=== PATIENT | female | born 1935 | race Caucasian/White ===

== ENCOUNTER 2016-11-24 04:19 | Emergency (ER) | payer BC ==
--- NOTE | 2016-11-24 04:23 | PDOC ---
History of Present Illness - General Chief Complaint: Injury Stated Complaint: STATES SHE FELL HITTING NECK AND HEAD/RIGHT HIP - History of Present Illness Initial Comments: 11/24/16 05:48 lives at home woke up to go to [place] fell, hitting upper neck. had pain in r hip predating the fall by several days. Timing/Duration: 1 hour Severity: moderate Modifying Factors: improves with: immobilization Associated Symptoms: denies: chest pain, diaphoresis, fever/chills, headaches Past History - Past Medical History Allergies/Adverse Reactions: Allergies Allergy/AdvReac Type Severity Reaction Status Date / Time warfarin sodium Allergy Rash Verified 11/24/16 04:21 [From Coumadin] Home Medications: Ambulatory Orders Aspirin [ASA -] 325 mg PO DAILY 11/24/16 Clopidogrel Bisulfate [Plavix -] 75 mg PO DAILY 11/24/16 Folic Acid 1 mg PO DAILY 11/24/16 Levothyroxine [Synthroid -] 75 mcg PO DAILY 11/24/16 Metoprolol Tartrate [Lopressor -] 50 mg PO DAILY 11/24/16 Ramipril 10 mg PO DAILY 11/24/16 Simvastatin 80 mg PO HS 11/24/16 Review of Systems - Review of Systems All Other Systems: Reviewed and Negative *Physical Exam - Physical Exam General Appearance: Yes: Nourished HEENT: positive: Normal Voice Neck: positive: Tender, Other (tender upper cervical spine) Respiratory/Chest: positive: Lungs Clear Cardiovascular: positive: Regular Rhythm Gastrointestinal/Abdominal: negative: Tender Musculoskeletal: positive: Other (tender r hip) Extremity: positive: Normal Capillary Refill Neurologic: positive: Alert (good strength in 4 extremties). negative: Fully Oriented Medical Decision Making - Medical Decision Making 11/24/16 05:52 plain films -, as read by me, referred to radiology for definitive review IO report for head and neck--no acute pathology a/p s/p trip and fall image head, cspine, hip and knee on plavix + asa--low risk of subactute SDH--can be observed at home ortho fu for persistent hip pain *DC/Admit/Observation/Transfer Diagnosis at time of Disposition: Head trauma Qualifiers: Encounter type: initial encounter Qualified Code(s): S09.90XA - Unspecified injury of head, initial encounter - Discharge Dispostion Disposition: HOME Condition at time of disposition: Stable - Patient Instructions Printed Discharge Instructions: DI for Closed Head Injury, DI for Hip Bursitis
[2016-11-24 04:33] VITALS: BP 189/102; PULSE 90; TEMP 98.7; BMI 20.9
== END 2016-11-24 05:59 | disposition home or self-care (01) ==
LOC: FER 04:19
DX: S09.90XA Unspecified injury of head, initial encounter (principal); W01.0XXA Fall on same level from slipping, tripping and stumbling without subsequent striking against object, initial encounter; Y93.01 Activity, walking, marching and hiking; Y92.008 Other place in unspecified non-institutional (private) residence as the place of occurrence of the external cause; Z79.82 Long term (current) use of aspirin
CPT/HCPCS: 70450-TC; 72125-TC; 73523-TC; 73560-TC-RT; 99281-25

== ENCOUNTER 2017-01-15 23:54 | Emergency (ER) | payer BC ==
--- NOTE | 2017-01-16 00:03 | PDOC ---
History of Present Illness - General Chief Complaint: Injury Stated Complaint: RT ELBOW SKIN TEAR Time Seen by Provider: 01/15/17 23:57 History Source: Patient Exam Limitations: No Limitations - History of Present Illness Initial Comments: 01/16/17 00:03 This is an 81-year-old female who lost her balance and tripped while ambulating with her walker falling and pushed her medical alert and was brought in by ambulance for evaluation. Patient denies hitting her head or passing out. Patient is complaining of a skin tear to her right elbow. PAST MEDICAL HISTORY: Hypertension, high cholesterol, hypothyroid PAST SURGICAL HISTORY: no significant history FAMILY HISTORY: no pertinant history SOCIAL HISTORY: Patient lives alone and is retired MEDICATIONS: reviewed ALLERGIES: As per nursing notes Review of Systems General: No fevers or chills, no weakness, no weight loss HEENT: No change in vision. No sore throat,. No ear pain CardioVascular: No chest pain or shortness of breath Respiratory:No cough, or wheezing. Gastrointestinal: no nausea, vomitting, diarrhea or constipation, No rectal bleeding Genitourinary: No dysuria, hematuria, or frequency Musculoskeletal: Right elbow injury with skin tear Neurologic: No headache, vertigo, dizziness or loss of consciousness Psychiatric: nor depression Skin: No rashes or easy bruising Endocrine: no increased thirst or abnormal weight change Allergic: no skin or latex allergy All other systems reviewed and normal GENERAL: The patient is awake, alert, and fully oriented, in no acute distress. HEAD: Normal with no signs of trauma. EYES: Pupils equal, round and reactive to light, extraocular movements intact, sclera anicteric, conjunctiva clear. EXTREMITIES: There is a small skin tear over the lateral aspect of the right elbow. There is some bony tenderness with decreased range of motion secondary to discomfort. Neurovascular distal is intact. NEUROLOGICAL: Normal speech, normal gait. PSYCH: Normal mood, normal affect. SKIN: Warm, Dry, normal turgor, no rashes or lesions noted. Past History - Past Medical History Allergies/Adverse Reactions: Allergies Allergy/AdvReac Type Severity Reaction Status Date / Time warfarin sodium Allergy Rash Verified 11/24/16 04:21 [From Coumadin] Home Medications: Ambulatory Orders Aspirin [ASA -] 325 mg PO DAILY 11/24/16 Clopidogrel Bisulfate [Plavix -] 75 mg PO DAILY 05/08/17 Folic Acid 1 mg PO DAILY 11/24/16 Levothyroxine [Synthroid -] 75 mcg PO DAILY 11/24/16 Metoprolol Tartrate [Lopressor -] 50 mg PO DAILY 11/24/16 Ramipril 10 mg PO DAILY 11/24/16 Simvastatin 80 mg PO HS 11/24/16 Cardiac Disorders: Yes HTN: Yes Hypercholesterolemia: Yes Seizures: Yes - Psycho/Social/Smoking Cessation Hx Anxiety: No Suicidal Ideation: No Smoking History: Never smoked Have you smoked in the past 12 months: No Hx Alcohol Use: Yes (DAILY WINE) Drug/Substance Use Hx: No Substance Use Type: Alcohol *DC/Admit/Observation/Transfer Diagnosis at time of Disposition: Skin tear of right elbow without complication Qualifiers: Encounter type: initial encounter Qualified Code(s): S51.011A - Laceration without foreign body of right elbow, initial encounter - Discharge Dispostion Condition at time of disposition: Stable Admit: No - Patient Instructions Additional Instructions: Tylenol or Motrin as needed for pain. Purchase some Telfa pads that are [id number] and apply little bacitracin and a Telfa pad and then a gauze wrap over the laceration until the laceration has scabbed in after that you can leave it open. Return to the emergency department immediately with ANY new, persistent or worsening symptoms. Continue any medications as previously prescribed by your physician. You should follow up with your primary doctor as soon as possible regarding today's emergency department visit. . Please make sure your doctor reviews the results of your emergency evaluation. Thank you for coming to the Emergency Department today for your care. It was a pleasure to see you today. Please note that your evaluation is INCOMPLETE until you follow-up with your doctor.
[2017-01-16 00:11] VITALS: BP 154/74; PULSE 64; TEMP 98.7; BMI 22.2
== END 2017-01-16 02:00 | disposition home or self-care (01) ==
LOC: FER 23:54
DX: S51.011A Laceration without foreign body of right elbow, initial encounter (principal); I10 Essential (primary) hypertension; I51.9 Heart disease, unspecified; E78.00 Pure hypercholesterolemia, unspecified; Z79.82 Long term (current) use of aspirin; E03.9 Hypothyroidism, unspecified; W01.0XXA Fall on same level from slipping, tripping and stumbling without subsequent striking against object, initial encounter; Y93.89 Activity, other specified; Y92.9 Unspecified place or not applicable; Z99.89 Dependence on other enabling machines and devices
CPT/HCPCS: 70450-TC; 73070-TC-RT; 99282-25

== ENCOUNTER 2017-03-27 21:24 | Inpatient (IN) | payer BC ==
[2017-03-27 21:44] VITALS: BMI 22.2
--- NOTE | 2017-03-27 22:17 | PDOC ---
History of Present Illness - General Chief Complaint: Wound Stated Complaint: LT LEG WOUND Time Seen by Provider: 03/27/17 21:26 - History of Present Illness Initial Comments: This 81-year-old woman with a history of hypertension/hyperlipidemia/ hypothyroidism/CAD(hx of stents) is brought in by ambulance with left lower leg injury: Patient states that a few hours prior to presentation she fell while going to the bathroom and her walker fell on the anterior portion of her left lower leg. She denies lightheadedness prior to fall, stating that she tripped. She sustained a bruise to this area which subsequently began to bleed. Police and EMS were called; when bleeding became more profuse patient was brought here. Patient denies head or neck injury. There was no loss of consciousness. She states that she was able to briefly stand after the injury, although pain in area of wound was severe. She had no pain in her hip. She denies headache/neck pain/chest pain/shortness of breath. There is no nausea or abdominal pain. Patient is currently on Plavix s/p stent placement. She states she had previously been on Coumadin but developed an ALLERGY to this medication and and was switched to Plavix. PMH as above Patient has a history of surgical repair of hip fracture Patient's PMD is who practices in [place] Patient lives alone Medications as noted below Past History - Past Medical History Allergies/Adverse Reactions: Allergies Allergy/AdvReac Type Severity Reaction Status Date / Time warfarin sodium Allergy Rash Verified 11/24/16 04:21 [From Coumadin] Home Medications: Ambulatory Orders Aspirin [ASA -] 325 mg PO DAILY 11/24/16 Clopidogrel Bisulfate [Plavix -] 75 mg PO DAILY 11/24/16 Folic Acid 1 mg PO DAILY 11/24/16 Levothyroxine [Synthroid -] 75 mcg PO DAILY 11/24/16 Metoprolol Tartrate [Lopressor -] 50 mg PO DAILY 11/24/16 Ramipril 20 mg PO DAILY 11/24/16 Simvastatin 80 mg PO HS 11/24/16 Hydrochlorothiazide 25 mg PO DAILY 03/27/17 Cardiac Disorders: Yes HTN: Yes Hypercholesterolemia: Yes Seizures: Yes - Psycho/Social/Smoking Cessation Hx Anxiety: No Suicidal Ideation: No Smoking History: Never smoked Have you smoked in the past 12 months: No Hx Alcohol Use: Yes Drug/Substance Use Hx: No Substance Use Type: None Review of Systems - Review of Systems Able to Perform ROS?: Yes Comments:: 12 point review of systems is negative except for what is noted in the history of present illness *Physical Exam - Vital Signs Last Vital Signs Temp Pulse Resp BP Pulse Ox 98.2 F 72 16 120/70 99 03/27/17 21:24 03/27/17 21:24 03/27/17 21:24 03/27/17 21:24 03/27/17 21:24 - Physical Exam Comments: GENERAL: Elderly female, awake and oriented 3 but with some difficulty in word recall HEAD: Normal with no signs of trauma. EYES: PERRLA, EOMI, sclera anicteric, conjunctiva clear. ENT: Ears normal, nares patent, oropharynx clear without exudates. Dry mucous membranes. Nontender, non-edematous ecchymosis right submandibular area NECK: Normal range of motion, supple without lymphadenopathy, JVD, or masses. LUNGS: Breath sounds equal, clear to auscultation bilaterally. No wheezes, and no crackles. HEART:Regular rate and rhythm, normal S1 and S2 without murmur, rub or gallop. ABDOMEN:.normal bowel sounds No guarding,tenderness or rebound.No masses No distention. EXTREMITIES: Left LE lower leg anterior 20 cm soft tissue hematoma with 10 cm central vertical linear superficial laceration vs skin tear Central portion of the wound is oozing without obvious pulsatile flow Posterior portion of the lower leg is soft and nontender Remainder of the extremity exam is normal NEUROLOGICAL: Cranial nerves II through XII grossly intact. Moving all 4 extremities equally (except for pain and limitation of the left lower extremity) ; speech clear but significant word recall/recent memory deficits 12-lead electrocardiogram is performed and interpreted by me: paced rhythm at 62 bpm. T waves are inverted in leads V4 through V6. Otherwise, no significant waveform abnormalities are present. [place] and intervals are normal. X-ray of the tibia/fibula of the left leg shows no evidence of acute fracture/ dislocation. Procedures - Laceration/Wound Repair Left Lower Leg Wound Length: 7.6 to 12.5 cm Wound's Depth, Shape: superficial Irrigated w/ Saline: Yes Betadine Prep: No Progress: Under sterile technique, left lower leg anterior hematoma/superficial laceration examined: Area was cleansed with sterile normal saline. Laceration/ skin tear is very superficial and underlying hematoma is large. No pulsatile vessels identified. Surgicel and Xeroform placed on area of oozing, followed by dry sterile gauze. Gentle pressure was placed on area for several minutes. This was followed by Dread wrap covering of the wound. Leg was elevated ED Treatment Course - LABORATORY CBC & Chemistry Diagram: 03/27/17 23:05 03/27/17 23:05 Medical Decision Making - Medical Decision Making This 81-year-old woman currently taking antiplatelet medications, living alone , brought in by ambulance with left lower leg injury: Patient fell at home and sustained a hematoma to the anterior portion of the left lower leg. According to patient's son, there is a large amount of blood present in the area where the patient fell when he arrived Although the patient is awake and oriented, she had considerable amount of difficulty in word recall and recent memory. According to the patient's son, this is not her baseline mental status , stating that she is usually "mentally sharp" As noted above, there is a very large soft tissue hematoma of the anterior portion of the left lower leg with central, vertical skin tear versus superficial laceration. Laboratory evaluation revealed patient white blood cell count of 14,700; there is also mild decrease in hemoglobin and hematocrit to 9.1/28.2. MCV and MCH are decreased. Remainder of the laboratory evaluation, including cardiac enzymes, is generally unremarkable. UA (voided) is positive for nitrite/2+LE; micro-shows 75 WBCs, 2-4 RBCs and few bacteria; patient did not void enough for culture and sensitivity sample Both the patient and her son cannot recall a recent history of anemia. Patient states that she was told she was anemic as a child . She does not believe she was under any recent treatment for acute anemia. No previous CBC or other laboratory evaluation is available. Noncontrast head CT performed to evaluate for acute pathology in light of change in mental status and history of a fall. This reveals no evidence of acute pathology. The ventricles are enlarged out of proportion to the sulci and mild superimposed normal pressure hydrocephalus cannot be excluded. 03/28/17 04:28 Case discussed with CRISTY Tsai of [facility] service. Patient will be admitted to the service. Rocephin 500 mg IVPB will be given for apparent UTI. Of note, patient now with clear mentation, recalling details of her medical history/medication that she could not remember a few hours ago. Urine sent for culture and sensitivity. Patient transported to admission bed stable and without new complaints. *DC/Admit/Observation/Transfer Diagnosis at time of Disposition: Traumatic hematoma of left lower leg Qualifiers: Encounter type: initial encounter Qualified Code(s): S80.12XA - Contusion of left lower leg, initial encounter Anemia Qualifiers: Anemia type: unspecified type Qualified Code(s): D64.9 - Anemia, unspecified - Discharge Dispostion Condition at time of disposition: Stable Admit: Yes
[2017-03-27 23:31] LABS: BASOPHIL 0.5 % (0-2.0); EOSINOPHIL 1.9 % (0-4.5); MCH 23.6 pg (25.7-33.7); MCHC 32.2 g/dl (32.0-36.0); MEAN CELL VOLUME 73.4 fl (80-96); MEAN PLT VOLUME 8.5 fl (7.5-11.1); PLATELET COUNT 315 K/MM3 (134-434); RDW 16.5 % (11.6-15.6); WHITE BLOOD COUNT 14.7 K/mm3 (4.0-10.8)
[2017-03-27 23:37] LABS: INR 1.01 (0.82-1.09); PROTHROMBIN TIME (PATIENT) 11.3 SEC (10.2-13.0)
[2017-03-27 23:43] LABS: ALBUMIN 3.4 g/dl (3.5-5.0); ALK PHOS 78 U/L (32-92); ANION GAP 13 (8-16); BILIRUBIN,TOTAL 0.6 mg/dl (0.2-1.0); CALCIUM 8.5 mg/dl (8.4-10.2); CO2 20 mmol/L (22-28); CPK 103 IU/L (26-192); CREATININE 0.8 mg/dl (0.6-1.3); GLUCOSE,RANDOM 93 mg/dl (74-106); SGOT/AST 25 U/L (10-42); SGPT/ALT 10 U/L (10-40)
[2017-03-27 23:48] LABS: TROPONIN I (DFP) < 0.03 ng/ml (0.03-0.50)
[2017-03-28] MEDS ORDERED: ACETAMINOPHEN 325 MG TABLET (FP) PO ONE (00:59)
[2017-03-28] MEDS ORDERED: ACETAMINOPHEN 325 MG TABLET (FP) ONE (01:03)
[2017-03-28 01:48] LABS: URINE APPEARANCE SLCLOUDY; URINE BILIRUBIN NEGATIVE (NEGATIVE); URINE BLOOD NEGATIVE (NEGATIVE); URINE COLOR YELLOW; URINE GLUCOSE (UA) NEGATIVE (NEGATIVE); URINE KETONE TRACE (NEGATIVE); URINE LEUK ESTERASE 2+ (NEGATIVE); URINE NITRITE POSITIVE (NEGATIVE); URINE PROTEIN NEGATIVE (NEGATIVE); URINE UROBILINOGEN NEGATIVE mg/dL (0.2-1.0)
[2017-03-28 01:50] LABS: URINE BACTERIA RARE /hpf (NONE SEEN); URINE MUCUS RARE; URINE RBC <1 /hpf (0-3); URINE WBC 75 /hpf (3-5)
[2017-03-28] MEDS ORDERED: cefTRIAXone SODIUM 1 GM VIAL ONE (04:29)
[2017-03-28] MEDS: LEVOTHYROXINE NA 75 MCG TABLET (FP) PO SCH (06:54)
[2017-03-28 08:04] LABS: BASOPHIL 0.4 % (0-2.0); EOSINOPHIL 0.3 % (0-4.5); MCH 23.4 pg (25.7-33.7); MCHC 31.8 g/dl (32.0-36.0); MEAN CELL VOLUME 73.5 fl (80-96); MEAN PLT VOLUME 8.5 fl (7.5-11.1); NEUTROPHILS 70.7 % (42.8-82.8); PLATELET COUNT 267 K/MM3 (134-434); RDW 16.8 % (11.6-15.6); WHITE BLOOD COUNT 9.3 K/mm3 (4.0-10.8)
[2017-03-28 08:32] LABS: ANION GAP 7 (8-16); CALCIUM 8.4 mg/dl (8.4-10.2); CO2 24 mmol/L (22-28); CREATININE 0.8 mg/dl (0.6-1.3); GLUCOSE,RANDOM 103 mg/dl (74-106); MAGNESIUM 2.2 mg/dL (1.8-2.4); PHOSPHOROUS 4.3 mg/dl (2.5-4.6)
--- NOTE | 2017-03-28 09:29 | HP ---
CHIEF COMPLAINT: Fall PCP: HISTORY OF PRESENT ILLNESS: This is an 81 year old female with a history of HTN , HLD, CAD s/p stents (on ASA, Plavix), PPM, frequent UTIs, and hypothyroidism brought in to the ED by ambulance s/p slip and fall at home. She reports that she was ambulating when she slipped and fell, and her walker fell on top of her leg. She denies any chest pain, dizziness, lightheadedness, or any other prodrome prior to the fall. She denies loss of consciousness. She complains of severe left leg pain. ER course was notable for: (1) Left tib/fib xray: No fracture. Focal swelling by the proximal fibula. (2) H/H: 9.1/28.2 (patient does not know of any history of anemia, but does recall a transfusion once many years ago) (3) UA with 75 WBC, pos nitrites Recent Travel: None PAST MEDICAL HISTORY: As above PAST SURGICAL HISTORY: Pacemaker, stents x 2, bilateral hip replacements Social History: Lives alone, has friend who visits to prepare meals and set up medications. Smoking: When "very young" Alcohol: None Family History: Non-contributory to this admission Allergies warfarin sodium [From Coumadin] Allergy (Verified 11/24/16 04:21) Rash HOME MEDICATIONS: Home Medications Medication Instructions Recorded Aspirin [ASA -] 325 mg PO DAILY 11/24/16 Clopidogrel Bisulfate [Plavix -] 75 mg PO DAILY 11/24/16 Folic Acid 1 mg PO DAILY 11/24/16 Levothyroxine [Synthroid -] 75 mcg PO DAILY 11/24/16 Metoprolol Tartrate [Lopressor -] 50 mg PO DAILY 11/24/16 Ramipril 20 mg PO DAILY 11/24/16 Simvastatin 80 mg PO HS 11/24/16 Hydrochlorothiazide 25 mg PO DAILY 03/27/17 REVIEW OF SYSTEMS CONSTITUTIONAL: Absent: fever, chills, diaphoresis, generalized weakness, malaise, loss of appetite, weight change HEENT: Absent: rhinorrhea, nasal congestion, throat pain, throat swelling, difficulty swallowing, mouth swelling, ear pain, eye pain, visual changes CARDIOVASCULAR: Absent: chest pain, syncope, palpitations, irregular heart rate, lightheadedness , peripheral edema RESPIRATORY: Absent: cough, shortness of breath, dyspnea with exertion, orthopnea, wheezing, stridor, hemoptysis GASTROINTESTINAL: Absent: abdominal pain, abdominal distension, nausea, vomiting, diarrhea, constipation, melena, hematochezia GENITOURINARY: Frequent UTIs Absent: dysuria, frequency, urgency, hesitancy, hematuria, flank pain, genital pain MUSCULOSKELETAL: Left leg pain Absent: myalgia, arthralgia, joint swelling, back pain, neck pain SKIN: Absent: rash, itching, pallor HEMATOLOGIC/IMMUNOLOGIC: Distant history of transfusion. On ASA/Plavix. Absent: lymphadenopathy, frequent infections ENDOCRINE: Absent: unexplained weight gain, unexplained weight loss, heat intolerance, cold intolerance NEUROLOGIC: Absent: headache, focal weakness or paresthesias, dizziness, unsteady gait, seizure, mental status changes, bladder or bowel incontinence PSYCHIATRIC: Absent: anxiety, depression, suicidal or homicidal ideation, hallucinations. PHYSICAL EXAMINATION Vital Signs - 24 hr 03/28/17 04:32 Temperature 98.5 F Pulse Rate 67 Respiratory 19 Rate Blood Pressure 123/86 O2 Sat by Pulse 99 Oximetry (%) GENERAL: Awake, alert, and fully oriented but with some confusion/forgetfulness , in no acute distress. HEAD: Normal with no signs of trauma. EYES: Pupils equal, round and reactive to light, extraocular movements intact, sclera anicteric, conjunctiva clear. No lid lag. EARS, NOSE, THROAT: Ears normal, nares patent, oropharynx clear without exudates. Moist mucous membranes. Right submandibular hematoma, tender. NECK: Normal range of motion, supple without lymphadenopathy, JVD, or masses. LUNGS: Breath sounds equal, clear to auscultation bilaterally. No wheezes, and no crackles. No accessory muscle use. HEART: Regular rate and rhythm, normal S1 and S2 without murmur, rub or gallop. ABDOMEN: Soft, nontender, not distended, normoactive bowel sounds, no guarding, no rebound, no masses. No hepatomegaly or splenomegaly. Malodorous urine. MUSCULOSKELETAL: Normal range of motion of wrists, elbows, shoulders, ankles, knees, hips bilaterally. No bony deformities or tenderness. No CVA tenderness. UPPER EXTREMITIES: 2+ pulses, warm, well-perfused. No cyanosis. No clubbing. No peripheral edema. Right wrist hematoma. LOWER EXTREMITIES: LLE: DP/PT pulses 1+. 20cm x 6cm soft hematoma with central vertical skin tear. Oozing, non-pulsatile. NEUROLOGICAL: Cranial nerves II-XII intact. Normal speech. PSYCHIATRIC: Cooperative. Good eye contact. Appropriate mood and affect. SKIN: Warm, dry, normal turgor. Laboratory Results - last 24 hr 03/28/17 03/28/17 07:50 07:50 WBC 9.3 D RBC 3.33 L Hgb 7.8 L D Hct 24.5 L MCV 73.5 L MCH 23.4 L MCHC 31.8 L RDW 16.8 H Plt Count 267 MPV 8.5 Neutrophils % 70.7 Lymphocytes % 21.6 Monocytes % 7.0 Eosinophils % 0.3 D Basophils % 0.4 Sodium 133 L Potassium 3.8 Chloride 102 Carbon Dioxide 24 Anion Gap 7 L BUN 17 D Creatinine 0.8 Random Glucose 103 Calcium 8.4 Phosphorus 4.3 Magnesium 2.2 ASSESSMENT/PLAN: 81 year old female with large LLE hematoma s/p fall. Problem List - Problem (1) Traumatic hematoma of left lower leg Assessment/Plan: -Continue Xeroform/gauze/pressure dressing -Monitor CBC closely -Hold ASA/Plavix -Tylenol prn pain -Discussed with vascular surgery who will evaluate for possible evacuation Code(s): S80.12XA - CONTUSION OF LEFT LOWER LEG, INITIAL ENCOUNTER Qualifiers : Encounter type: initial encounter Qualified Code(s): S80.12XA - Contusion of left lower leg, initial encounter (2) Anemia Assessment/Plan: -Hgb 7.8<--9.1 on admission -Repeat this afternoon -Transfuse for Hgb <7 Code(s): D64.9 - ANEMIA, UNSPECIFIED Qualifiers: Anemia type: unspecified type Qualified Code(s): D64.9 - Anemia, unspecified (3) HTN (hypertension) Assessment/Plan: -At goal -Continue Lopressor/HCTZ/Ramipril Code(s): I10 - ESSENTIAL (PRIMARY) HYPERTENSION (4) HLD (hyperlipidemia) Assessment/Plan: -Continue Simvastatin Code(s): E78.5 - HYPERLIPIDEMIA, UNSPECIFIED (5) CAD (coronary artery disease) Assessment/Plan: -Continue BB, statin -Hold ASA/Plavix for now (stents not recent) Code(s): I25.10 - ATHSCL HEART DISEASE OF [place] CORONARY ARTERY W/O ANG PCTRS (6) Urinary tract infection Assessment/Plan: -Given Ceftriaxone x 1 in ED -Start Keflex -Send urine culture Code(s): N39.0 - URINARY TRACT INFECTION, SITE NOT SPECIFIED (7) DVT prophylaxis Assessment/Plan: -SCD right leg -PT DISPO: TANYA placement. Code(s): [id number] - Visit type - Emergency Visit Emergency Visit: Yes ED Registration Date: 03/28/17 Care time: The patient presented to the Emergency Department on the above date and was hospitalized for further evaluation of their emergent condition. - New Patient This patient is new to me today: Yes Date on this admission: 03/28/17 - Critical Care Critical Care patient: No
[2017-03-28] MEDS ORDERED: ONDANSETRON 4 MG/2 ML VIAL IVPB PRN (09:31)
[2017-03-28] MEDS: RAMIPRIL 5 MG CAPSULE (FP) PO SCH (09:56)
[2017-03-28] MEDS: ACETAMINOPHEN 325 MG TABLET (FP) PO PRN (09:56)
[2017-03-28] MEDS: FOLIC ACID 1 MG TABLET (FP) PO SCH (09:56)
[2017-03-28] MEDS: HYDROCHLOROTHIAZIDE 25 MG TABLET (FP) PO SCH (09:57)
[2017-03-28] MEDS: METOPROLOL TARTRATE 50 MG TABLET (FP) PO SCH (09:57)
[2017-03-28] MEDS: CEPHALEXIN MONOHYDRATE 500 MG CAPSULE (UD) PO SCH ×2 (12:05→21:29)
--- NOTE | 2017-03-28 12:22 | CONSULT ---
Consult - Alcohol/Substance Use Hx Alcohol Use: Yes - Smoking History Smoking history: Never smoked Have you smoked in the past 12 months: No Home Medications - Allergies Allergies/Adverse Reactions: Allergies Allergy/AdvReac Type Severity Reaction Status Date / Time warfarin sodium Allergy Rash Verified 11/24/16 04:21 [From Coumadin] - Home Medications Home Medications: Ambulatory Orders Aspirin [ASA -] 325 mg PO DAILY 11/24/16 Clopidogrel Bisulfate [Plavix -] 75 mg PO DAILY 11/24/16 Folic Acid 1 mg PO DAILY 11/24/16 Levothyroxine [Synthroid -] 75 mcg PO DAILY 11/24/16 Metoprolol Tartrate [Lopressor -] 50 mg PO DAILY 11/24/16 Ramipril 20 mg PO DAILY 11/24/16 Simvastatin 80 mg PO HS 11/24/16 Hydrochlorothiazide 25 mg PO DAILY 03/27/17 Physical Exam Vital Signs: Vital Signs Temperature 98.5 F 03/28/17 04:32 Pulse Rate 67 03/28/17 04:32 Respiratory Rate 19 03/28/17 04:32 Blood Pressure 123/86 03/28/17 04:32 O2 Sat by Pulse Oximetry (%) 99 03/28/17 04:32 Labs: CBC, BMP 03/28/17 07:50 03/28/17 07:50 Assessment/Plan Vascular Surgery This 81-year-old woman with a history of hypertension/hyperlipidemia/ hypothyroidism/CAD(hx of stents) is brought in by ambulance with left lower leg injury: Patient states that a few hours prior to presentation she fell while going to the bathroom and her walker fell on the anterior portion of her left lower leg. She denies lightheadedness prior to fall, stating that she tripped. She sustained a bruise to this area which subsequently began to bleed. Police and EMS were called; when bleeding became more profuse patient was brought here. Patient denies head or neck injury. There was no loss of consciousness. She states that she was able to briefly stand after the injury, although pain in area of wound was severe. She had no pain in her hip. She denies headache/neck pain/chest pain/shortness of breath. There is no nausea or abdominal pain. Patient is currently on Plavix s/p stent placement. She states she had previously been on Coumadin but developed an ALLERGY to this medication and and was switched to Plavix. PMH as above Patient has a history of surgical repair of hip fracture Patient's PMD is who practices in [place] Patient lives alone Medications as noted below PE Head - NC/AT lung - CTA Heart - RRR abd - soft,nt,nd ext -- left rashid -- hematoma with skin excoriation. Palpable pulses. A/P Left leg trauma when walker fell on her. 1. Will need evacuation of hematoma. 2. Will do on thursday . 3. Can then go to rehab. Vu Castillo DO
[2017-03-28 13:19] LABS: BASOPHIL 0.5 % (0-2.0); EOSINOPHIL 0.3 % (0-4.5); MCHC 32.3 g/dl (32.0-36.0); MEAN CELL VOLUME 74.1 fl (80-96); MEAN PLT VOLUME 8.3 fl (7.5-11.1); NEUTROPHILS 67.8 % (42.8-82.8); PLATELET COUNT 280 K/MM3 (134-434); RDW 17.1 % (11.6-15.6)
[2017-03-28] MEDS: ACETAMINOPHEN WITH CODEINE 300MG/30MG TABLET PO PRN ×2 (13:35→19:20)
[2017-03-28] MEDS: DOCUSATE SODIUM 100 MG CAPSULE (FP) PO SCH ×2 (14:00→21:29)
[2017-03-28] MEDS: ATORVASTATIN CA 40 MG TABLET (FP) PO SCH (21:29)
[2017-03-29] MEDS: DOCUSATE SODIUM 100 MG CAPSULE (FP) PO SCH ×3 (06:31→21:33)
[2017-03-29] MEDS: LEVOTHYROXINE NA 75 MCG TABLET (FP) PO SCH (06:31)
[2017-03-29 08:50] LABS: PROTHROMBIN TIME (PATIENT) 11.2 SEC (10.2-13.0)
[2017-03-29 08:57] LABS: BASOPHIL 0.6 % (0-2.0); EOSINOPHIL 3.1 % (0-4.5); MCH 24.3 pg (25.7-33.7); MCHC 31.9 g/dl (32.0-36.0); MEAN CELL VOLUME 76.1 fl (80-96); MEAN PLT VOLUME 9.1 fl (7.5-11.1); NEUTROPHILS 54.6 % (42.8-82.8); PLATELET COUNT 235 K/MM3 (134-434); RDW 17.1 % (11.6-15.6); WHITE BLOOD COUNT 8.6 K/mm3 (4.0-10.8)
--- NOTE | 2017-03-29 09:09 | PN ---
Physical Exam: SUBJECTIVE: Patient seen and examined. Complaining of perineal "burning" after being washed this morning. OBJECTIVE: Vital Signs Period Temp Pulse Resp BP Sys/Carbone Pulse Ox Last 24 Hr 98.0 F-98.1 F 56-62 18-20 107-121/61-69 100-100 GENERAL: The patient is awake, alert, and fully oriented, in no acute distress. HEAD: Normal with no signs of trauma. EYES: PERRL, extraocular movements intact, sclera anicteric, conjunctiva clear. No ptosis. ENT: Ears normal, nares patent, oropharynx clear without exudates, moist mucous membranes. NECK: Trachea midline, full range of motion, supple. LUNGS: Breath sounds equal, clear to auscultation bilaterally, no wheezes, no crackles, no accessory muscle use. HEART: Regular rate and rhythm, S1, S2 without murmur, rub or gallop. ABDOMEN: Soft, nontender, nondistended, normoactive bowel sounds, no guarding, no rebound, no hepatosplenomegaly, no masses. EXTREMITIES: 2+ pulses, warm, well-perfused. LLE:20cm x 6cm soft hematoma with central vertical skin tear. Oozing, non-pulsatile. Controlled with pressure dressing - less saturated today than yesterday. NEUROLOGICAL: Cranial nerves II through XII grossly intact. Normal speech, gait not observed. PSYCH: Normal mood, normal affect. SKIN: Warm, dry, normal turgor. No rash or lesions noted to perineum. Laboratory Results - last 24 hr Laboratory Results - last 24 hr 03/28/17 03/29/17 03/29/17 13:14 06:30 06:30 WBC 10.0 8.6 RBC 3.28 L 3.02 L Hgb 7.9 L 7.3 L Hct 24.3 L 23.0 L MCV 74.1 L 76.1 L MCH 24.0 L 24.3 L MCHC 32.3 31.9 L RDW 17.1 H 17.1 H Plt Count 280 235 MPV 8.3 9.1 Neutrophils % 67.8 54.6 Lymphocytes % 21.7 30.8 D Monocytes % 9.7 10.9 H Eosinophils % 0.3 3.1 D Basophils % 0.5 0.6 Hypochromia 1+ Platelet Estimate Adequate Anisocytosis 1+ INR 1.00 Sodium Potassium Chloride Carbon Dioxide Anion Gap BUN Creatinine Creat Clearance w eGFR Random Glucose Calcium Total Bilirubin AST ALT Alkaline Phosphatase Total Protein Albumin 03/29/17 06:30 WBC RBC Hgb Hct MCV MCH MCHC RDW Plt Count MPV Neutrophils % Lymphocytes % Monocytes % Eosinophils % Basophils % Hypochromia Platelet Estimate Anisocytosis INR Sodium 134 L Potassium 4.0 Chloride 101 Carbon Dioxide 25 Anion Gap 8 BUN 17 Creatinine 0.9 Creat Clearance w eGFR > 60 Random Glucose 92 Calcium 8.4 Total Bilirubin 0.8 D AST 19 D ALT 10 Alkaline Phosphatase 66 Total Protein 5.5 L Albumin 3.1 L Active Medications Generic Name Dose Route Start Last Admin Trade Name Freq PRN Reason Stop Dose Admin Acetaminophen 650 mg 03/28/17 09:31 03/28/17 09:56 Tylenol - PO 650 mg Q4H PRN Administration FEVER OR PAIN Acetaminophen/Codeine Phosphate 1 tab 03/28/17 13:14 03/28/17 19:20 Tylenol # 3 - PO 1 tab Q6H PRN Administration PAIN Atorvastatin Calcium 40 mg 03/28/17 22:00 03/28/17 21:29 Lipitor - PO 40 mg HS EMILY Administration Cephalexin HCl 500 mg 03/28/17 10:00 03/28/17 21:29 Keflex - PO 500 mg BID EMILY Administration Docusate Sodium 100 mg 03/28/17 14:00 03/29/17 06:31 Colace - PO 100 mg TID EMILY Administration Ferrous Sulfate 325 mg 03/30/17 10:00 Feosol - PO DAILY EMILY Folic Acid 1 mg 03/28/17 10:00 03/28/17 09:56 Folic Acid - PO 1 mg DAILY EMILY Administration Hydrochlorothiazide 25 mg 03/28/17 10:00 03/28/17 09:57 Hctz - PO 25 mg DAILY EMILY Administration Levothyroxine Sodium 75 mcg 03/28/17 07:00 03/29/17 06:31 Synthroid - PO 75 mcg DAILY@0700 EMILY Administration Metoprolol Tartrate 50 mg 03/28/17 10:00 03/28/17 09:57 Lopressor - PO 50 mg DAILY EMILY Administration Ondansetron HCl 4 mg 03/28/17 09:31 Zofran Injection IVPB Q6H PRN NAUSEA Ramipril 20 mg 03/28/17 10:00 03/28/17 09:56 Altace - PO 20 mg DAILY EMILY Administration ASSESSMENT/PLAN: Problem List - Problems (1) Traumatic hematoma of left lower leg Assessment/Plan: -Continue Xeroform/gauze/pressure dressing -Monitor CBC closely -Ok to continue ASA/Plavix per vascular surgery -Tylenol #3 prn pain -NPO after midnight for hematoma evacuation tomorrow Code(s): S80.12XA - CONTUSION OF LEFT LOWER LEG, INITIAL ENCOUNTER Qualifiers : Encounter type: initial encounter Qualified Code(s): S80.12XA - Contusion of left lower leg, initial encounter (2) Anemia Assessment/Plan: -Hgb 7.3<--9.1 on admission -Repeat this afternoon -Transfuse for Hgb <7 -Suspect component of iron deficiency with microcytic/hypochromic anemia- send iron studies, start iron supplementation Code(s): D64.9 - ANEMIA, UNSPECIFIED Qualifiers: Anemia type: unspecified type Qualified Code(s): D64.9 - Anemia, unspecified (3) HTN (hypertension) Assessment/Plan: -At goal -Continue Lopressor/HCTZ/Ramipril Code(s): I10 - ESSENTIAL (PRIMARY) HYPERTENSION (4) HLD (hyperlipidemia) Assessment/Plan: -Continue Simvastatin Code(s): E78.5 - HYPERLIPIDEMIA, UNSPECIFIED (5) CAD (coronary artery disease) Assessment/Plan: -Continue BB, statin, ASA, Plavix Code(s): I25.10 - ATHSCL HEART DISEASE OF [place] CORONARY ARTERY W/O ANG PCTRS (6) Urinary tract infection Assessment/Plan: -Given Ceftriaxone x 1 in ED -Keflex -Follow up urine culture Code(s): N39.0 - URINARY TRACT INFECTION, SITE NOT SPECIFIED (7) DVT prophylaxis Assessment/Plan: -ROBBIE right leg -PT DISPO: TANYA placement. Code(s): OXA3579 - Visit type - Emergency Visit Emergency Visit: Yes ED Registration Date: 03/28/17 Care time: The patient presented to the Emergency Department on the above date and was hospitalized for further evaluation of their emergent condition. - New Patient This patient is new to me today: No - Critical Care Critical Care patient: No
[2017-03-29 09:38] LABS: ALBUMIN 3.1 g/dl (3.5-5.0); ALK PHOS 66 U/L (32-92); ANION GAP 8 (8-16); BILIRUBIN,TOTAL 0.8 mg/dl (0.2-1.0); CALCIUM 8.4 mg/dl (8.4-10.2); CO2 25 mmol/L (22-28); CREATININE 0.9 mg/dl (0.6-1.3); GLUCOSE,RANDOM 92 mg/dl (74-106); SGOT/AST 19 U/L (10-42); SGPT/ALT 10 U/L (10-40); TOT PROT 5.5 g/dl (6.4-8.3)
--- NOTE | 2017-03-29 09:48 | SPA.PREOP ---
- PRE-OP NOTE Dx: LLE hematoma Planned Procedure: Evacuation of LLE hematoma Surgeon: Preston Castillo Consent: To be obtained after surgeon explains risks, benefits and alternatives to patient. Last Vital Signs Temp Pulse Resp BP Pulse Ox 98.0 F 62 20 121/61 100 03/29/17 06:00 03/29/17 06:00 03/29/17 06:00 03/29/17 06:00 03/29/17 06:06 Lab Results WBC 8.6 K/mm3 (4.0-10.8) 03/29/17 06:30 RBC 3.02 M/mm3 (3.60-5.2) L 03/29/17 06:30 Hgb 7.3 GM/dl (10.7-15.3) L 03/29/17 06:30 Hct 23.0 % (32.4-45.2) L 03/29/17 06:30 MCV 76.1 fl (80-96) L 03/29/17 06:30 MCHC 31.9 g/dl (32.0-36.0) L 03/29/17 06:30 RDW 17.1 % (11.6-15.6) H 03/29/17 06:30 Plt Count 235 K/MM3 (134-434) 03/29/17 06:30 Sodium 134 mmol/L (136-145) L 03/29/17 06:30 Potassium 4.0 mmol/L (3.5-5.1) 03/29/17 06:30 Chloride 101 mmol/L (98-107) 03/29/17 06:30 Carbon Dioxide 25 mmol/L (22-28) 03/29/17 06:30 Anion Gap 8 (8-16) 03/29/17 06:30 BUN 17 mg/dl (7-18) 03/29/17 06:30 Creatinine 0.9 mg/dl (0.6-1.3) 03/29/17 06:30 Random Glucose 92 mg/dl (74-106) 03/29/17 06:30 Calcium 8.4 mg/dl (8.4-10.2) 03/29/17 06:30 INR 1.00 (0.82-1.09) 03/29/17 06:30 - ASSESSMENT/PLAN Problem List - Problems (1) Traumatic hematoma of left lower leg Assessment/Plan: 1. Make NPO after midnight except po meds 2. GI/DVT PPX 3. Medical optimization / clearance 4. Type and screen Code(s): S80.12XA - CONTUSION OF LEFT LOWER LEG, INITIAL ENCOUNTER Qualifiers : Encounter type: initial encounter Qualified Code(s): S80.12XA - Contusion of left lower leg, initial encounter Visit type - Case Type Case Type: ED Admission - New patient This patient is new to me today: Yes Date on this admission: 03/29/17
[2017-03-29 09:53] LABS: ANISOCYTOSIS 1+; HYPOCHROMIA 1+; PLATELET ESTIMATE ADEQUATE (NORMAL)
[2017-03-29] MEDS: RAMIPRIL 5 MG CAPSULE (FP) PO SCH (10:32)
[2017-03-29] MEDS: FOLIC ACID 1 MG TABLET (FP) PO SCH (10:34)
[2017-03-29] MEDS: HYDROCHLOROTHIAZIDE 25 MG TABLET (FP) PO SCH (10:35)
[2017-03-29] MEDS: METOPROLOL TARTRATE 50 MG TABLET (FP) PO SCH (10:35)
[2017-03-29] MEDS: ACETAMINOPHEN 325 MG TABLET (FP) PO PRN (10:35)
[2017-03-29] MEDS: CEPHALEXIN MONOHYDRATE 500 MG CAPSULE (UD) PO SCH ×2 (10:35→21:33)
[2017-03-29] MEDS: ASPIRIN 81 MG CHEWABLE TABLETS PO SCH (12:30)
[2017-03-29] MEDS: CLOPIDOGREL BISULFATE 75 MG TABLET (FP) PO SCH (12:30)
[2017-03-29 16:39] LABS: MCHC 31.6 g/dl (32.0-36.0); MEAN CELL VOLUME 75.8 fl (80-96); MEAN PLT VOLUME 9.1 fl (7.5-11.1); PLATELET COUNT 260 K/MM3 (134-434); WHITE BLOOD COUNT 9.1 K/mm3 (4.0-10.8)
[2017-03-29] MEDS: ACETAMINOPHEN WITH CODEINE 300MG/30MG TABLET PO PRN (20:21)
[2017-03-29] MEDS: ATORVASTATIN CA 40 MG TABLET (FP) PO SCH (21:33)
[2017-03-30] MEDS: LEVOTHYROXINE NA 75 MCG TABLET (FP) PO SCH (06:56)
[2017-03-30] MEDS: DOCUSATE SODIUM 100 MG CAPSULE (FP) PO SCH ×3 (06:57→21:13)
--- NOTE | 2017-03-30 07:44 | PN ---
Physical Exam: SUBJECTIVE: Patient seen and examined, reports intermittent left lower extremity pain, denies any paresthesia to the extremity. OBJECTIVE: patient is an 81 year old female with a history of HTN, HLD, CAD s/ p stents (on ASA, Plavix), PPM, frequent UTIs, and hypothyroidism. Patient was admitted from the emergency department for hematoma to the left lower extremity and urinary tract infection. Vital Signs Period Temp Pulse Resp BP Sys/Carbone Pulse Ox Last 24 Hr 98.0 F-98.6 F 54-60 16-20 121-138/47-57 99-100 GENERAL: The patient is awake, alert, and fully oriented, in no acute distress. HEAD: Normal with no signs of trauma. EYES: PERRL, extraocular movements intact, sclera anicteric, conjunctiva clear. No ptosis. ENT: Ears normal, nares patent, oropharynx clear without exudates, moist mucous membranes. NECK: Trachea midline, full range of motion, supple. LUNGS: Breath sounds equal, clear to auscultation bilaterally, no wheezes, no crackles, no accessory muscle use. HEART: Regular rate and rhythm, S1, S2 without murmur, rub or gallop. ABDOMEN: Soft, nontender, nondistended, normoactive bowel sounds, no guarding, no rebound, no hepatosplenomegaly, no masses. EXTREMITIES: 2+ pulses, warm, well-perfused. LLE:20cm x 6cm soft hematoma with central vertical skin tear. sangenous drainage noted non-pulsatile. xerform dressing noted, Controlled with pressure dressing dried blood noted. NEUROLOGICAL: Cranial nerves II through XII grossly intact. Normal speech, gait not observed. PSYCH: Normal mood, normal affect. SKIN: Warm, dry, normal turgor. Laboratory Results - last 24 hr 03/29/17 03/29/17 03/29/17 06:30 06:30 06:30 WBC 8.6 RBC 3.02 L Hgb 7.3 L Hct 23.0 L MCV 76.1 L MCH 24.3 L MCHC 31.9 L RDW 17.1 H Plt Count 235 MPV 9.1 Neutrophils % 54.6 Lymphocytes % 30.8 D Monocytes % 10.9 H Eosinophils % 3.1 D Basophils % 0.6 Hypochromia 1+ Platelet Estimate Adequate Anisocytosis 1+ INR 1.00 Sodium 134 L Potassium 4.0 Chloride 101 Carbon Dioxide 25 Anion Gap 8 BUN 17 Creatinine 0.9 Creat Clearance w eGFR > 60 Random Glucose 92 Calcium 8.4 Total Bilirubin 0.8 D AST 19 D ALT 10 Alkaline Phosphatase 66 Total Protein 5.5 L Albumin 3.1 L Blood Type Antibody Screen 03/29/17 03/29/17 03/29/17 14:45 14:45 14:45 WBC 9.1 RBC 2.99 L Hgb 7.2 L Hct 22.7 L MCV 75.8 L MCH 24.0 L MCHC 31.6 L RDW 17.0 H Plt Count 260 MPV 9.1 Neutrophils % Lymphocytes % Monocytes % Eosinophils % Basophils % Hypochromia Platelet Estimate Anisocytosis INR Sodium Potassium Chloride Carbon Dioxide Anion Gap BUN Creatinine Creat Clearance w eGFR Random Glucose Calcium Total Bilirubin AST ALT Alkaline Phosphatase Total Protein Albumin Blood Type O POSITIVE O POSITIVE Antibody Screen Negative Active Medications Generic Name Dose Route Start Last Admin Trade Name Freq PRN Reason Stop Dose Admin Acetaminophen 650 mg 03/28/17 09:31 03/29/17 10:35 Tylenol - PO 650 mg Q4H PRN Administration FEVER OR PAIN Acetaminophen/Codeine Phosphate 1 tab 03/28/17 13:14 03/29/17 20:21 Tylenol # 3 - PO 1 tab Q6H PRN Administration PAIN Aspirin 81 mg 03/29/17 12:15 03/29/17 12:30 Asa - PO 81 mg DAILY EMILY Administration Atorvastatin Calcium 40 mg 03/28/17 22:00 03/29/17 21:33 Lipitor - PO 40 mg HS EMILY Administration Cephalexin HCl 500 mg 03/28/17 10:00 03/29/17 21:33 Keflex - PO 500 mg BID EMILY Administration Clopidogrel Bisulfate 75 mg 03/29/17 12:15 03/29/17 12:30 Plavix - PO 75 mg DAILY EMILY Administration Docusate Sodium 100 mg 03/28/17 14:00 03/30/17 06:57 Colace - PO Not Given TID [facility] Ferrous Sulfate 325 mg 03/30/17 10:00 Feosol - PO DAILY [facility] Folic Acid 1 mg 03/28/17 10:00 03/29/17 10:34 Folic Acid - PO 1 mg DAILY EMILY Administration Hydrochlorothiazide 25 mg 03/28/17 10:00 03/29/17 10:35 Hctz - PO 25 mg DAILY EMILY Administration Levothyroxine Sodium 75 mcg 03/28/17 07:00 03/30/17 06:56 Synthroid - PO 75 mcg DAILY@0700 EMILY Administration Metoprolol Tartrate 50 mg 03/28/17 10:00 03/29/17 10:35 Lopressor - PO 50 mg DAILY EMILY Administration Ondansetron HCl 4 mg 03/28/17 09:31 Zofran Injection IVPB Q6H PRN NAUSEA Ramipril 20 mg 03/28/17 10:00 03/29/17 10:32 Altace - PO 20 mg DAILY EMILY Administration ASSESSMENT/PLAN: 1) traumatic hematoma to the left lower extremity - pending OR today - continue xeroform/cling/harley bandage to form a pressure dressing - prn pain medication - Dr Castillo, vascular surgery consulted and followed. 2)heme microcytic anemia -hgb 7.2, unknown baseline, pending OR today, known history of CAD, will transfuse 1 unit of prbc, repeat hgb in at 1800 - pending iron studies 3) card hypertension - continue lopressor/hctz/ramipril - b/p at goal hyperlipidemia -lft's wnl continue simvastin CAD s/p stent - hold asa/plavix pending or today 4) - continue keflex pending urine culture f/e/n - npo - replete electrolytes prn ppx - ROBBIE right leg - hold AC pending or dispo: requires inpatient admission Visit type - Emergency Visit Emergency Visit: Yes ED Registration Date: 03/28/17 Care time: The patient presented to the Emergency Department on the above date and was hospitalized for further evaluation of their emergent condition. - New Patient This patient is new to me today: Yes Date on this admission: 03/30/17 - Critical Care Critical Care patient: No - Discharge Referral Referred to [facility] Med [facility] No
[2017-03-30 08:36] LABS: BASOPHIL 0.4 % (0-2.0); EOSINOPHIL 3.7 % (0-4.5); MCH 23.6 pg (25.7-33.7); MCHC 31.1 g/dl (32.0-36.0); MEAN PLT VOLUME 8.9 fl (7.5-11.1); NEUTROPHILS 56.9 % (42.8-82.8); PLATELET COUNT 282 K/MM3 (134-434); RDW 17.7 % (11.6-15.6); WHITE BLOOD COUNT 9.8 K/mm3 (4.0-10.8)
[2017-03-30 08:47] LABS: ALBUMIN 3.2 g/dl (3.5-5.0); ALK PHOS 70 U/L (32-92); ANION GAP 6 (8-16); BILIRUBIN,TOTAL 0.7 mg/dl (0.2-1.0); CALCIUM 8.6 mg/dl (8.4-10.2); CO2 27 mmol/L (22-28); CREATININE 0.8 mg/dl (0.6-1.3); GLUCOSE,RANDOM 93 mg/dl (74-106); SGOT/AST 18 U/L (10-42); SGPT/ALT 9 U/L (10-40); TOT PROT 5.6 g/dl (6.4-8.3)
[2017-03-30] MEDS: RAMIPRIL 5 MG CAPSULE (FP) PO SCH (09:49)
[2017-03-30] MEDS: HYDROCHLOROTHIAZIDE 25 MG TABLET (FP) PO SCH (09:50)
[2017-03-30] MEDS: METOPROLOL TARTRATE 50 MG TABLET (FP) PO SCH (09:50)
[2017-03-30] MEDS: FERROUS SO4 325 MG TABLET (FP) PO SCH (09:50)
[2017-03-30] MEDS: FOLIC ACID 1 MG TABLET (FP) PO SCH (09:50)
[2017-03-30] MEDS: CEPHALEXIN MONOHYDRATE 500 MG CAPSULE (UD) PO SCH ×2 (09:50→21:13)
[2017-03-30] MEDS: ASPIRIN 81 MG CHEWABLE TABLETS PO SCH (09:51)
[2017-03-30] MEDS: CLOPIDOGREL BISULFATE 75 MG TABLET (FP) PO SCH (09:51)
[2017-03-30 10:07] LABS: FERRITIN 8.682 ng/ml (6.9-282.5)
[2017-03-30] MEDS ORDERED: PROPOFOL 20 ML ONE ×3 (13:34→14:31)
[2017-03-30] MEDS ORDERED: LIDOCAINE HCL/PF 2% SDV 5ML VIAL ONE (13:34)
[2017-03-30] MEDS ORDERED: LIDOCAINE HCL 1%, 10 MG/ML (20ML VIAL) ONE (14:35)
[2017-03-30] MEDS ORDERED: LIDOCAINE HCL 1%, 10 MG/ML (50 mL VIAL) IJ ONE (14:41)
[2017-03-30] MEDS ORDERED: BACITRACIN 15 GM TUBE TOPICAL OINTMENT TP ONE (14:50)
--- NOTE | 2017-03-30 14:54 | OP ---
Operative Note - Note: Operative Date: 03/30/17 Pre-Operative Diagnosis: Left rashid hematoma Operation: evacauation of hematoma left rashid Findings: hematoma evacuated pulse lavage performed. Post-Operative Diagnosis: Same as Pre-op Surgeon: Vu Castillo Anesthesia: Fractional Estimated Blood Loss (mls): 10 Operative Report Dictated: Yes
[2017-03-30] MEDS ORDERED: ONDANSETRON 4 MG/2 ML VIAL ONE (14:55)
--- NOTE | 2017-03-30 14:56 | PN ---
Progress Note (short form) - Note Progress Note: VAscular surgery S/P evacuation of hematoma left rashid. Change dressing daily with xeroform and kerlex. When pt goes to rehab, can follow up in wound care clinic at [facility]. call for appt -- [phone] Vu Castillo DO
[2017-03-30] MEDS ORDERED: LACTATED RINGERS SOLUTION 1,000 ML IV SCH (15:15)
[2017-03-30 19:01] LABS: MCH 24.8 pg (25.7-33.7); MCHC 31.4 g/dl (32.0-36.0); MEAN CELL VOLUME 78.8 fl (80-96); MEAN PLT VOLUME 8.6 fl (7.5-11.1); PLATELET COUNT 253 K/MM3 (134-434); RDW 18.6 % (11.6-15.6); WHITE BLOOD COUNT 9.9 K/mm3 (4.0-10.8)
[2017-03-30] MEDS: ATORVASTATIN CA 40 MG TABLET (FP) PO SCH (21:13)
[2017-03-30 22:46] LABS: PLATELET ESTIMATE ADEQUATE (NORMAL); REACTIVE LYMPHOCYTES 2 % (0-80)
[2017-03-30 22:47] LABS: ANISOCYTOSIS 2+; HYPOCHROMIA 2+; MACROCYTOSIS 1+
[2017-03-31] MEDS: LEVOTHYROXINE NA 75 MCG TABLET (FP) PO SCH (06:32)
[2017-03-31] MEDS: DOCUSATE SODIUM 100 MG CAPSULE (FP) PO SCH ×3 (07:10→21:05)
[2017-03-31] MEDS: ACETAMINOPHEN WITH CODEINE 300MG/30MG TABLET PO PRN ×2 (07:11→13:40)
[2017-03-31 07:57] LABS: BASOPHIL 0.6 % (0-2.0); MCH 24.6 pg (25.7-33.7); MCHC 31.3 g/dl (32.0-36.0); MEAN CELL VOLUME 78.6 fl (80-96); MEAN PLT VOLUME 8.7 fl (7.5-11.1); NEUTROPHILS 55.2 % (42.8-82.8); PLATELET COUNT 243 K/MM3 (134-434); RDW 18.7 % (11.6-15.6); WHITE BLOOD COUNT 8.9 K/mm3 (4.0-10.8)
--- NOTE | 2017-03-31 08:05 | PN ---
Progress Note (short form) - Note Progress Note: POD#1 PT with pain at her operative site. Pre medicated with oral tyelnol/IV morphine for dressing change. Vital Signs Period Temp Pulse Resp BP Sys/Carbone Pulse Ox Last 24 Hr 98.1 F-98.9 F 61-96 16-19 100-177/46-79 96-100 LLE:Sara intact in several places. No active bleeding. Ecchymosis to the skin. Telfa dressing replaced RLE: SCD in place. CBC, BMP 03/31/17 07:30 A/P: 81 yo female s/p LLE hematoma evacuation. local wound care with telfa, 4x4 gauze and funmilayo galvez planning to to rehab
[2017-03-31 08:07] LABS: SERUM IRON 11 ug/dL (27-139); TOTAL IRON BINDING CAPACITY 338 ug/dL (250-450); UIBC 327 ug/dL (118-369)
--- NOTE | 2017-03-31 08:08 | OP ---
DATE OF OPERATION: 03/30/2017 SURGEON: Vu Morel MD PREOPERATIVE DIAGNOSIS: Left rashid hematoma. POSTOPERATIVE DIAGNOSIS: Left rashid hematoma. PROCEDURE: Evacuation of left rashid hematoma. TOTAL BLOOD LOSS: 10 mL. ANESTHESIA: Fractional. INDICATIONS: The patient is an 81-year-old female who had a trauma at home three days ago where her walker fell on her left rashid and she developed a left rashid hematoma. It was decided that she would need evacuation. Patient was consented for the procedure understanding all risks, benefits, and alternatives and was then taken to the operating room. PROCEDURE IN DETAIL: Once in the operating room, she was placed on the operating table in the supine manner, and the area of the left rashid was prepped and draped in the sterile surgical manner. We then went ahead and injected 10 mL of 0.5% lidocaine in the area of the eschar on the left rashid. We then took Metzenbaum scissors and cut the eschar out. We then were able to squeeze out all the hematoma from the left rashid. We then went ahead and used pulse lavage with bacitracin, and we were able to lavage the entire, and all hematomas were removed, and the wound was nice and clean. We then went ahead and approximated the skin using skin leona. We then placed bacitracin and Xeroform and 4x4s and Kerlix. The patient tolerated the procedure with no complications. Patient transferred to PACU in stable condition. Total blood loss 10 mL. VU MOREL DO [id number]
[2017-03-31 08:17] LABS: ALBUMIN 2.8 g/dl (3.5-5.0); ALK PHOS 64 U/L (32-92); ANION GAP 5 (8-16); BILIRUBIN,TOTAL 0.8 mg/dl (0.2-1.0); CALCIUM 8.4 mg/dl (8.4-10.2); CO2 28 mmol/L (22-28); CREATININE 0.8 mg/dl (0.6-1.3); GLUCOSE,RANDOM 106 mg/dl (74-106); PHOSPHOROUS 3.4 mg/dl (2.5-4.6); SGOT/AST 17 U/L (10-42); SGPT/ALT 8 U/L (10-40); TOT PROT 5.1 g/dl (6.4-8.3)
[2017-03-31] MEDS ORDERED: morphine CARPU-JECT 2 MG/1 ML DISP.SYRIN IVPUSH ONE (08:30)
[2017-03-31] MEDS: ASPIRIN 81 MG CHEWABLE TABLETS PO SCH (09:27)
[2017-03-31] MEDS: HYDROCHLOROTHIAZIDE 25 MG TABLET (FP) PO SCH (09:28)
[2017-03-31] MEDS: CEPHALEXIN MONOHYDRATE 500 MG CAPSULE (UD) PO SCH ×2 (09:28→21:05)
[2017-03-31] MEDS: FERROUS SO4 325 MG TABLET (FP) PO SCH (09:28)
[2017-03-31] MEDS: FOLIC ACID 1 MG TABLET (FP) PO SCH (09:28)
[2017-03-31] MEDS: RAMIPRIL 5 MG CAPSULE (FP) PO SCH (09:28)
[2017-03-31] MEDS: METOPROLOL TARTRATE 50 MG TABLET (FP) PO SCH (09:29)
--- NOTE | 2017-03-31 09:41 | PN ---
Physical Exam: SUBJECTIVE: Patient seen and examined, reports pain to the left lower extremity upon movement, patient denies any parenthesisa to the extremity. OBJECTIVE: patient is an 81 year old female with a history of HTN, HLD, CAD s/ p stents (on ASA, Plavix), PPM, frequent UTIs, and hypothyroidism. Patient was admitted from the emergency department for hematoma to the left lower extremity. . Vital Signs Period Temp Pulse Resp BP Sys/Carbone Pulse Ox Last 24 Hr 98.1 F-98.9 F 61-96 16-19 100-177/46-79 96-100 GENERAL: The patient is awake, alert, and fully oriented, in no acute distress. HEAD: Normal with no signs of trauma. EYES: PERRL, extraocular movements intact, sclera anicteric, conjunctiva clear. No ptosis. ENT: Ears normal, nares patent, oropharynx clear without exudates, moist mucous membranes. NECK: Trachea midline, full range of motion, supple. LUNGS: Breath sounds equal, clear to auscultation bilaterally, no wheezes, no crackles, no accessory muscle use. HEART: Regular rate and rhythm, S1, S2 without murmur, rub or gallop. ABDOMEN: Soft, nontender, nondistended, normoactive bowel sounds, no guarding, no rebound, no hepatosplenomegaly, no masses. EXTREMITIES: 2+ pulses, warm, well-perfused, no edema. LEFT LOWER EXTREMITY: echymosis to the distal lower extremity, surgical site to lateral extremity leona in place and well approximated, +3 pedal pulse, trace edema NEUROLOGICAL: Cranial nerves II through XII grossly intact. Normal speech, gait not observed. PSYCH: Normal mood, normal affect. SKIN: Warm, dry, normal turgor, no rashes or lesions noted Laboratory Results - last 24 hr 03/30/17 03/30/17 03/30/17 07:30 07:30 18:06 WBC 9.9 RBC 3.40 L Hgb 8.4 L D Hct 26.8 L MCV 78.8 L MCH 24.8 L MCHC 31.4 L RDW 18.6 H Plt Count 253 MPV 8.6 Neutrophils % Y Neutrophils % (Manual) 64 Band Neuts % (Manual) 5 Lymphocytes % Y Lymphocytes % (Manual) 26 Monocytes % Monocytes % (Manual) 2 L Eosinophils % Eosinophils % (Manual) 1 Basophils % Hypochromia 2+ Platelet Estimate Adequate Platelet Comment Few large plts Anisocytosis 2+ Macrocytosis 1+ Sodium 137 Potassium 3.9 Chloride 104 Carbon Dioxide 27 Anion Gap 6 L BUN 14 Creatinine 0.8 Creat Clearance w eGFR > 60 Random Glucose 93 Calcium 8.6 Phosphorus Magnesium Iron 11 L TIBC 338 Iron Saturation 3 L Ferritin 8.682 Total Bilirubin 0.7 AST 18 ALT 9 L Alkaline Phosphatase 70 Total Protein 5.6 L Albumin 3.2 L 03/31/17 03/31/17 07:30 07:30 WBC 8.9 RBC 3.39 L Hgb 8.3 L Hct 26.6 L MCV 78.6 L MCH 24.6 L MCHC 31.3 L RDW 18.7 H Plt Count 243 MPV 8.7 Neutrophils % 55.2 Neutrophils % (Manual) Band Neuts % (Manual) Lymphocytes % 30.3 Lymphocytes % (Manual) Monocytes % 9.9 Monocytes % (Manual) Eosinophils % 4.0 Eosinophils % (Manual) Basophils % 0.6 Hypochromia Platelet Estimate Platelet Comment Anisocytosis Macrocytosis Sodium 135 L Potassium 3.5 Chloride 102 Carbon Dioxide 28 Anion Gap 5 L BUN 13 Creatinine 0.8 Creat Clearance w eGFR > 60 Random Glucose 106 Calcium 8.4 Phosphorus 3.4 D Magnesium 2.0 Iron TIBC Iron Saturation Ferritin Total Bilirubin 0.8 AST 17 ALT 8 L Alkaline Phosphatase 64 Total Protein 5.1 L Albumin 2.8 L Active Medications Generic Name Dose Route Start Last Admin Trade Name Freq PRN Reason Stop Dose Admin Acetaminophen 650 mg 03/28/17 09:31 03/29/17 10:35 Tylenol - PO 650 mg Q4H PRN Administration FEVER OR PAIN Acetaminophen/Codeine Phosphate 1 tab 03/28/17 13:14 03/31/17 07:11 Tylenol # 3 - PO 1 tab Q6H PRN Administration PAIN Aspirin 81 mg 03/29/17 12:15 03/31/17 09:27 Asa - PO 81 mg DAILY EMILY Administration Atorvastatin Calcium 40 mg 03/28/17 22:00 03/30/17 21:13 Lipitor - PO Not Given HS EMILY Cephalexin HCl 500 mg 03/28/17 10:00 03/31/17 09:28 Keflex - PO 500 mg BID EMILY Administration Clopidogrel Bisulfate 75 mg 03/29/17 12:15 03/30/17 09:51 Plavix - PO Not Given DAILY [facility] Docusate Sodium 100 mg 03/28/17 14:00 03/31/17 07:10 Colace - PO 100 mg TID EMILY Administration Fentanyl 25 mcg 03/30/17 15:11 Sublimaze Injection - IVPUSH 04/02/17 15:12 [id number] PRN PAIN Ferrous Sulfate 325 mg 03/30/17 10:00 03/31/17 09:28 Feosol - PO 325 mg DAILY EMILY Administration Folic Acid 1 mg 03/28/17 10:00 03/31/17 09:28 Folic Acid - PO 1 mg DAILY EMILY Administration Hydrochlorothiazide 25 mg 03/28/17 10:00 03/31/17 09:28 Hctz - PO 25 mg DAILY EMILY Administration Levothyroxine Sodium 75 mcg 03/28/17 07:00 03/31/17 06:32 Synthroid - PO 75 mcg DAILY@0700 EMILY Administration Metoprolol Tartrate 50 mg 03/28/17 10:00 03/31/17 09:29 Lopressor - PO 50 mg DAILY EMILY Administration Ondansetron HCl 4 mg 03/28/17 09:31 Zofran Injection IVPB Q6H PRN NAUSEA Ramipril 20 mg 03/28/17 10:00 03/31/17 09:28 Altace - PO 20 mg DAILY EMILY Administration Microbiology 03/30/17 13:05 Urine - Urine Clean Catch Urine Culture - Final, less than 10k ASSESSMENT/PLAN: 1) traumatic hematoma to the left lower extremity--s/p left lower extremity hematoma evacuation (03/30/17) - pod #1 (Castillo) dressing changed wound is well appearing - prn pain medication - Dr Castillo, vascular surgery consulted and followed. 2)heme microcytic anemia - likely secondary to iron deficency/acute blood loss - 1 unit of prbc transfused, 03/30, hgb 8.3, close monitoring repeat hgb in am - continue iron supplements 3) card hypertension - continue lopressor/hctz/ramipril - b/p at goal hyperlipidemia -lft's wnl continue simvastin CAD s/p stent - continue asa/plavix pending or today 4) - urine culture less than 10 k f/e/n - low sodium diet - replete electrolytes prn ppx - ROBBIE right leg - pt evaluation dispo: requires inpatient admission Visit type - Emergency Visit Emergency Visit: Yes ED Registration Date: 03/28/17 Care time: The patient presented to the Emergency Department on the above date and was hospitalized for further evaluation of their emergent condition. - New Patient This patient is new to me today: Yes Date on this admission: 03/31/17 - Critical Care Critical Care patient: No - Discharge Referral Referred to [facility] Med P.C.: No
--- NOTE | 2017-03-31 10:33 | EKG ---
Test Reason : Blood Pressure : / mmHG Vent. Rate : 062 BPM Atrial Rate : 062 BPM P-R Int : 232 ms QRS Dur : 072 ms QT Int : 414 ms P-R-T Axes : 000 -19 -37 degrees QTc Int : 420 ms Atrial-paced rhythm with prolonged AV conduction NO PREVIOUS ECGS AVAILABLE Confirmed by MD HENSON MARJORY ([id number]) on 03/31/2017 10:33:18 AM Referred By: MD FELTON Confirmed By:TRESSA HENSON MD
[2017-03-31] MEDS: POLYETHYLENE GLYCOL 3350 119 GM BTL PO SCH (11:14)
[2017-03-31] MEDS: CLOPIDOGREL BISULFATE 75 MG TABLET (FP) PO SCH (11:15)
[2017-03-31] MEDS: ACETAMINOPHEN 325 MG TABLET (FP) PO PRN (16:46)
[2017-03-31] MEDS: ATORVASTATIN CA 40 MG TABLET (FP) PO SCH (21:05)
[2017-04-01] MEDS: ACETAMINOPHEN WITH CODEINE 300MG/30MG TABLET PO PRN ×2 (04:16→19:40)
[2017-04-01] MEDS: LEVOTHYROXINE NA 75 MCG TABLET (FP) PO SCH (06:32)
[2017-04-01] MEDS: DOCUSATE SODIUM 100 MG CAPSULE (FP) PO SCH ×3 (06:32→21:39)
[2017-04-01] MEDS: FERROUS SO4 325 MG TABLET (FP) PO SCH (09:55)
[2017-04-01] MEDS: FOLIC ACID 1 MG TABLET (FP) PO SCH (09:55)
[2017-04-01] MEDS: CEPHALEXIN MONOHYDRATE 500 MG CAPSULE (UD) PO SCH ×2 (09:55→21:39)
[2017-04-01] MEDS: ASPIRIN 81 MG CHEWABLE TABLETS PO SCH (09:55)
[2017-04-01] MEDS: CLOPIDOGREL BISULFATE 75 MG TABLET (FP) PO SCH (09:55)
[2017-04-01] MEDS: POLYETHYLENE GLYCOL 3350 119 GM BTL PO SCH (09:56)
[2017-04-01] MEDS: METOPROLOL TARTRATE 50 MG TABLET (FP) PO SCH (09:56)
[2017-04-01] MEDS: HYDROCHLOROTHIAZIDE 25 MG TABLET (FP) PO SCH (09:56)
[2017-04-01] MEDS: RAMIPRIL 5 MG CAPSULE (FP) PO SCH (09:56)
--- NOTE | 2017-04-01 09:56 | DS ---
Physical Exam: SUBJECTIVE: Patient seen and examined, reports feeling well denies any paresthesia to the left lower extremity, reports pain to the surgical site upon palpation OBJECTIVE: This is an 81 year old female with a history of HTN, HLD, CAD s/p stents (on ASA, Plavix), PPM, frequent UTIs, and hypothyroidism brought in to the ED by ambulance s/p slip and fall at home. She reports that she was ambulating when she slipped and fell, and her walker fell on top of her leg. She denies any chest pain, dizziness, lightheadedness, or any other prodrome prior to the fall. She denies loss of consciousness. She complains of severe left leg pain. ER course was notable for: (1) Left tib/fib xray: No fracture. Focal swelling by the proximal fibula. (2) H/H: 9.1/28.2 (patient does not know of any history of anemia, but does recall a transfusion once many years ago) (3) UA with 75 WBC, pos nitrites Vital Signs Period Temp Pulse Resp BP Sys/Carbone Pulse Ox Last 24 Hr 97.4 F-98.0 F 60-76 16-18 122-161/45-62 95-100 PHYSICAL EXAM GENERAL: The patient is awake, alert, and fully oriented, in no acute distress. HEAD: Normal with no signs of trauma. EYES: PERRL, extraocular movements intact, sclera anicteric, conjunctiva clear. ENT: Ears normal, nares patent, oropharynx clear without exudates, moist mucous membranes. NECK: Trachea midline, full range of motion, supple. LUNGS: Breath sounds equal, clear to auscultation bilaterally, no wheezes, no crackles, no accessory muscle use. HEART: Regular rate and rhythm, S1, S2 without murmur, rub or gallop. ABDOMEN: Soft, nontender, nondistended, normoactive bowel sounds, no guarding, no rebound, no hepatosplenomegaly, no masses. EXTREMITIES: 2+ pulses, warm, well-perfused, no edema. NEUROLOGICAL: Cranial nerves II through XII grossly intact. Normal speech, gait not observed. PSYCH: Normal mood, normal affect. SKIN: Warm, dry, normal turgor, no rashes or lesions noted. LABS CBC WBC 8.7 K/mm3 (4.0-10.8) 04/01/17 10:45 RBC 3.41 M/mm3 (3.60-5.2) L 04/01/17 10:45 Hgb 8.4 GM/dl (10.7-15.3) L 04/01/17 10:45 Hct 26.8 % (32.4-45.2) L 04/01/17 10:45 MCV 78.6 fl (80-96) L 04/01/17 10:45 MCH 24.8 pg (25.7-33.7) L 04/01/17 10:45 MCHC 31.6 g/dl (32.0-36.0) L 04/01/17 10:45 RDW 18.3 % (11.6-15.6) H 04/01/17 10:45 Plt Count 294 K/MM3 (134-434) D 04/01/17 10:45 MPV 8.8 fl (7.5-11.1) 04/01/17 10:45 Neutrophils % 65.5 % (42.8-82.8) 04/01/17 10:45 Neutrophils % (Manual) 64 % (42.8-82.8) 03/30/17 18:06 Band Neuts % (Manual) 5 % (0-10) 03/30/17 18:06 Lymphocytes % 18.6 % (8-40) D 04/01/17 10:45 Lymphocytes % (Manual) 26 % (8-40) 03/30/17 18:06 Monocytes % 8.9 % (3.8-10.2) 04/01/17 10:45 Monocytes % (Manual) 2 % (3.8-10.2) L 03/30/17 18:06 Eosinophils % 6.7 % (0-4.5) H 04/01/17 10:45 Eosinophils % (Manual) 1 % (0-4.5) 03/30/17 18:06 Basophils % 0.3 % (0-2.0) 04/01/17 10:45 Hypochromia 2+ 03/30/17 18:06 Platelet Estimate Adequate (NORMAL) 03/30/17 18:06 Platelet Comment Few large plts 03/30/17 18:06 Anisocytosis 2+ 03/30/17 18:06 Macrocytosis 1+ 03/30/17 18:06 CMP Sodium 134 mmol/L (136-145) L 04/01/17 18:00 Potassium 4.6 mmol/L (3.5-5.1) D 04/01/17 18:00 Chloride 102 mmol/L (98-107) 04/01/17 18:00 Carbon Dioxide 25 mmol/L (22-28) 04/01/17 18:00 Anion Gap 7 (8-16) L 04/01/17 18:00 BUN 12 mg/dl (7-18) 04/01/17 18:00 Creatinine 0.8 mg/dl (0.6-1.3) 04/01/17 18:00 Creat Clearance w eGFR > 60 (>60) 03/31/17 07:30 Random Glucose 155 mg/dl (74-106) H D 04/01/17 18:00 Calcium 8.9 mg/dl (8.4-10.2) 04/01/17 18:00 Phosphorus 3.2 mg/dl (2.5-4.6) 04/01/17 10:45 Magnesium 2.1 mg/dL (1.8-2.4) 04/01/17 10:45 Iron 11 ug/dL (27-139) L 03/30/17 07:30 TIBC 338 ug/dL (250-450) 03/30/17 07:30 Iron Saturation 3 % (15-55) L 03/30/17 07:30 Ferritin 8.682 ng/ml (6.9-282.5) 03/30/17 07:30 Total Bilirubin 0.8 mg/dl (0.2-1.0) 03/31/17 07:30 AST 17 U/L (10-42) 03/31/17 07:30 ALT 8 U/L (10-40) L 03/31/17 07:30 Alkaline Phosphatase 64 U/L (32-92) 03/31/17 07:30 Creatine Kinase 103 IU/L (26-192) 03/27/17 23:05 Troponin I < 0.03 ng/ml (0.03-0.50) L 03/27/17 23:05 Total Protein 5.1 g/dl (6.4-8.3) L 03/31/17 07:30 Albumin 2.8 g/dl (3.5-5.0) L 03/31/17 07:30 HOSPITAL COURSE: 1) traumatic hematoma to the left lower extremity--s/p left lower extremity hematoma evacuation (03/30/17) - pod #3(Castillo) dressing changed wound is well appearing - prn pain medication - Dr Castillo, vascular surgery consulted and followed. 2)heme microcytic anemia - likely secondary to iron deficency/acute blood loss - 1 unit of prbc transfused, 03/30, hgb 8.3, close monitoring repeat hgb in am - continue iron supplements 3) card hypertension - continue lopressor/hctz/ramipril - b/p at goal hyperlipidemia -lft's wnl continue simvastin CAD s/p stent - continue asa/plavix pending or today 4) - urine culture less than 10 k Date of Admission:03/28/17 Date of Discharge: 04/01/17 Minutes to complete discharge: 45 Discharge Summary Reason For Visit: anemia, LLE traumatic hematoma Current Active Problems Anemia (Acute) CAD (coronary artery disease) (Acute) DVT prophylaxis (Acute) HLD (hyperlipidemia) (Acute) HTN (hypertension) (Acute) Traumatic hematoma of left lower leg (Acute) Urinary tract infection (Acute) Condition: Stable - Instructions Diet, Activity, Other Instructions: continue keflex for the next 7 days continue dressing changes daily with telfa, 4x4 and cling continue all medications as prescribed please follow up with Dr Castillo within 7 days if any new or persistent symptoms devleop please return to the emergency department Referrals: Vu Castillo MD [Staff Physician] - Disposition: [facility] - Home Medications Comprehensive Discharge Medication List: Ambulatory Orders Aspirin [ASA -] 325 mg PO DAILY 11/24/16 Clopidogrel Bisulfate [Plavix -] 75 mg PO DAILY 11/24/16 Folic Acid 1 mg PO DAILY 11/24/16 Levothyroxine [Synthroid -] 75 mcg PO DAILY 11/24/16 Metoprolol Tartrate [Lopressor -] 50 mg PO DAILY 11/24/16 Ramipril 20 mg PO DAILY 11/24/16 Simvastatin 80 mg PO HS 11/24/16 Hydrochlorothiazide 25 mg PO DAILY 03/27/17 - Discharge Referral Referred to [facility] No
[2017-04-01 11:22] LABS: BASOPHIL 0.3 % (0-2.0); EOSINOPHIL 6.7 % (0-4.5); MCH 24.8 pg (25.7-33.7); MCHC 31.6 g/dl (32.0-36.0); MEAN CELL VOLUME 78.6 fl (80-96); MEAN PLT VOLUME 8.8 fl (7.5-11.1); NEUTROPHILS 65.5 % (42.8-82.8); PLATELET COUNT 294 K/MM3 (134-434); RDW 18.3 % (11.6-15.6); WHITE BLOOD COUNT 8.7 K/mm3 (4.0-10.8)
[2017-04-01 11:42] LABS: ANION GAP 6 (8-16); CALCIUM 8.6 mg/dl (8.4-10.2); CO2 29 mmol/L (22-28); CREATININE 0.9 mg/dl (0.6-1.3); GLUCOSE,RANDOM 110 mg/dl (74-106); MAGNESIUM 2.1 mg/dL (1.8-2.4); PHOSPHOROUS 3.2 mg/dl (2.5-4.6)
[2017-04-01] MEDS ORDERED: POTASSIUM CHLORIDE TABS 20 MEQ TABLET.ER (FP) PO ONE ×2 (13:15→15:00)
[2017-04-01 19:53] LABS: ANION GAP 7 (8-16); CALCIUM 8.9 mg/dl (8.4-10.2); CO2 25 mmol/L (22-28); CREATININE 0.8 mg/dl (0.6-1.3); GLUCOSE,RANDOM 155 mg/dl (74-106)
[2017-04-01] MEDS: ATORVASTATIN CA 40 MG TABLET (FP) PO SCH (21:39)
[2017-04-02] MEDS: LEVOTHYROXINE NA 75 MCG TABLET (FP) PO SCH (06:17)
[2017-04-02] MEDS: DOCUSATE SODIUM 100 MG CAPSULE (FP) PO SCH ×2 (06:17→14:12)
[2017-04-02] MEDS: METOPROLOL TARTRATE 50 MG TABLET (FP) PO SCH (09:14)
[2017-04-02] MEDS: POTASSIUM CHLORIDE TABS 20 MEQ TABLET.ER (FP) PO SCH ×2 (09:14→09:20)
[2017-04-02] MEDS: RAMIPRIL 5 MG CAPSULE (FP) PO SCH (09:14)
[2017-04-02] MEDS: CLOPIDOGREL BISULFATE 75 MG TABLET (FP) PO SCH (09:14)
[2017-04-02] MEDS: FERROUS SO4 325 MG TABLET (FP) PO SCH (09:14)
[2017-04-02] MEDS: FOLIC ACID 1 MG TABLET (FP) PO SCH (09:14)
[2017-04-02] MEDS: ASPIRIN 81 MG CHEWABLE TABLETS PO SCH (09:14)
[2017-04-02] MEDS: CEPHALEXIN MONOHYDRATE 500 MG CAPSULE (UD) PO SCH (09:14)
[2017-04-02] MEDS: POLYETHYLENE GLYCOL 3350 119 GM BTL PO SCH ×2 (09:15→09:19)
[2017-04-02 14:39] VITALS: BP 116/90; PULSE 73; TEMP 97.9
== END 2017-04-02 14:28 | DRG 982 ==
LOC: FER 21:24 → FM/S 03-28 04:18 → OBSVTOIN 03-28 16:54 → FM/S 03-29 21:18
PROVIDERS: ADMIT Internal Medicine; ATTEND Nurse Practitioner Family
PROC: 0JDP0ZZ Extraction of Left Lower Leg Subcutaneous Tissue and Fascia, Open Approach (ICD-10-PCS; 2017-03-30)
PROC: 30233H1 Transfusion of Nonautologous Whole Blood into Peripheral Vein, Percutaneous Approach (ICD-10-PCS; 2017-03-30)
PROC: 0Y9J0ZZ Drainage of Left Lower Leg, Open Approach (ICD-10-PCS; principal; 2017-03-30 14:23)
DX: D62 Acute posthemorrhagic anemia (principal); T79.2XXA Traumatic secondary and recurrent hemorrhage and seroma, initial encounter; N39.0 Urinary tract infection, site not specified; G40.89 Other seizures; S81.812A Laceration without foreign body, left lower leg, initial encounter; S80.12XA Contusion of left lower leg, initial encounter; I25.10 Atherosclerotic heart disease of native coronary artery without angina pectoris; E03.9 Hypothyroidism, unspecified; Z95.5 Presence of coronary angioplasty implant and graft; S89.92XA Unspecified injury of left lower leg, initial encounter; W20.8XXA Other cause of strike by thrown, projected or falling object, initial encounter; Y93.89 Activity, other specified; Y92.89 Other specified places as the place of occurrence of the external cause; Y99.8 Other external cause status; Z96.643 Presence of artificial hip joint, bilateral; I10 Essential (primary) hypertension; E78.5 Hyperlipidemia, unspecified; Z95.0 Presence of cardiac pacemaker
CPT/HCPCS: 36415; 36430; 70450-TC; 73590-TC-LT; 80048; 80053; 81003; 81015; 82728; 83540; 83550; 83735; 84100; 84484; 85025; 85027; 85610; 86850; 86900; 86901; 86922; 87086; 93005; 94760; 97116-GP; 97162-GP; 99284-25; G0378; P9038; P9058